=== PATIENT | female | born 1975 | race Caucasian/White ===

== ENCOUNTER 2021-10-16 15:56 | Emergency (ER) | payer MEDICAID ==
[~2021-10-16] VITALS: Ht 157.5 cm; Wt 90.0 kg
[~2021-10-16 15:56] MED LIST: CEPH500C2 MT; DIPH25TA62 MT; EPIN0.3P3 IM
[2021-10-16] MEDS ORDERED: BIRTH CONTROL (16:49)
[2021-10-16] MEDS ORDERED: TRAMADOL 50MG TABLET PO ONE (17:45)
[2021-10-16 18:28] LABS: BASOPHILS % 0.3 % (0.0-2.0); EOSINOPHILS % 0.5 % (0.0-5.0); HEMATOCRIT. 37.9 % (36.0-48.0); HEMOGLOBIN. 12.7 g/dL (12.0-16.0); LYMPHOCYTES % 20.5 % (20.0-50.0); MEAN CORPUSCULAR VOLUME 89.6 fL (81.0-99.0); MEAN PLATELET VOLUME 8.6 fl (7.4-10.4); MONOCYTES % 4.6 % (2.0-8.0); NEUTROPHILS % 74.1 % (40.0-76.0); PLATELET 263 x1000/uL (130-400); RED BLOOD CELL COUNT 4.22 mill/uL (4.2-5.4); RED CELL DISTRIBUTION WIDTH 12.8 % (11.6-14.6)
[2021-10-16 18:34] LABS: CHLORIDE 104 mEq/L (98-107)
[2021-10-16 18:44] LABS: CLARITY URINE CLOUDY (CLEAR); COLOR URINE DARK YELLOW (YELLOW); KETONES URINE 2+ (NEGATIVE); LEUKOCYTE ESTERASE URINE 2+ (NEGATIVE); NITRITE URINE NEGATIVE (NEGATIVE); OCCULT BLOOD URINE 3+ (NEGATIVE); PH URINE 5.5 (4.5-8.0); PROTEIN URINE 1+ (NEGATIVE); SPECIFIC GRAVITY URINE 1.021 (1.005-1.030)
[2021-10-16] MEDS ORDERED: IOHEXOL-300 100 ML BOTTLE ONE (21:04)
[2021-10-16] MEDS ORDERED: IBUP-2030 MT (21:23)
[2021-10-16] MEDS ORDERED: AMOX1TAB16 MT (21:23)
[2021-10-16 21:56] VITALS: BP 121/70
== END 2021-10-16 21:57 | disposition home or self-care (01) ==
LOC: ER 15:56
DX: K57.92 Diverticulitis of intestine, part unspecified, without perforation or abscess without bleeding (principal); J45.909 Unspecified asthma, uncomplicated; Z79.899 Other long term (current) drug therapy
CPT/HCPCS: 36415; 74177; 80053; 81003; 81025; 83690; 85025; 99285; Q9967